=== PATIENT | female | born 2000 | race African-American/Black ===

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

== ENCOUNTER 2018-01-13 13:19 | Outpatient (CLI) | payer MEDICAID ==
--- NOTE | 2018-01-13 15:26 | ULT ---
COMPLETE OB ULTRASOUND GREATER THAN 14 WEEKS: History: Size and dates, anatomy scan. FINDINGS: Placenta is anterior. Single viable intrauterine fetus noted in cephalic presentation. Amniotic fluid index 17.6 cm. heart rate 184 beats/minute. Lower uterine segment is somewhat poorly seen. anatomy including visualized brain, four-chamber heart, three-vessel cord, stomach, bladd er, kidney, spine, and extremity regions are unremarkable. biometry: BDP 7 cm - 28 weeks 1 day HC 25.2 cm - 28 weeks 4 days AC 22.9 cm - 27 weeks 3 days FL 5.6 cm - 29 weeks 4 days IMPRESSION: 28 weeks 3 days, ADIS 12-17-18. Estimated weight 1194 grams. POS: [facility]
== END 2018-01-13 13:20 | disposition home or self-care (01) ==
LOC: BICULT 13:19
PROVIDERS: ATTEND Nurse Practitioner
DX: O09.893 Supervision of other high risk pregnancies, third trimester (principal); Z3A.28 28 weeks gestation of pregnancy
CPT/HCPCS: 76805

== ENCOUNTER 2018-03-10 16:58 | Day surgery (SDC) | payer MEDICAID, OTHER ==
[2018-03-10 17:37] VITALS: BP 110/70; TEMP 98.5; BMI 25.0
[2018-03-10 18:16] LABS: Amnisure Test No Membranes Rupture (No Rupture)
[2018-03-10 18:17] LABS: Amnisure Internal Control QC ACCEPTABLE (ACCEPTABLE)
[2018-03-10 18:28] LABS: Bilirubin Negative (Negative); Blood, Urine Negative (Negative); Clarity CLOUDY (Clear); Glucose, Urine (Dipstick) Negative (Negative); Leukocyte Moderate (Negative); Nitrite Negative (Negative); Protein, Urine (Dipstick) Negative (Neg-Trace); Specific Gravity, Urine 1.005 (1.002-1.036)
[2018-03-10 18:30] LABS: Bacteria/HPF None Seen HPF (None Seen); Hyaline Casts/LPF 0-3 HYALINE CAST LPF (0-3 Hyaline); Pathc Cast-AUWi Flag 0.14 (0-2.49); RBC/HPF 0-3 HPF (0-3); Squamous Epithelial 0-3 HPF (0-3)
--- NOTE | 2018-03-10 20:25 | SS ---
LABOR AND DELIVERY TRIAGE NOTE DATE OF EVALUATION: 03/10/2018 CHIEF COMPLAINT: Leakage of fluid at home, contractions, burning with urination. HISTORY OF PRESENT ILLNESS: Ms. Cabello is a 17-year-old black, G2, P1-0-0-1 with an estimated date of confinement of 04/04/2018, who presents this afternoon complaining of burning with urination, vaginal discharge and irregular contractions over the last 12-24 hours. She denies vaginal bleeding. Her care has been with Dr. Miller. PAST OBSTETRICAL HISTORY: One uncomplicated vaginal delivery at term. PAST MEDICAL HISTORY: None. CURRENT MEDICATIONS: vitamins. PAST SURGICAL HISTORY: Left breast cyst. ALLERGIES: No known allergies. SOCIAL HISTORY: Denies tobacco, alcohol, or drug use. REVIEW OF SYSTEMS: Denies nausea, vomiting, fever, chills, vaginal bleeding or decreased movement. PHYSICAL EXAMINATION: VITAL SIGNS: Her vital signs are stable. She is afebrile. ABDOMEN: Soft, nontender and gravid. PELVIC: Pelvic examination, on sterile speculum exam, shows no fluid in the vault. There is a small amount of discharge. On digital cervical examination, the cervix is 2 cm dilated, but the cervix is thick and posterior. heart tones are stable. There are no decelerations. They are reassuring. No significant regular contractions are seen. LABORATORY DATA: Her laboratories returned showing a urinalysis with a specific gravity of 1.005, pH of 7.0. It is cloudy with negative protein, negative glucose, negative ketones, negative blood, negative nitrites, but moderate leukocyte esterase. Her AmniSure shows no evidence of membrane rupture and her METAL [employer]TER-3 screen is negative for Hortensia, Gardnerella and Trichomonas. ASSESSMENT: 1. A 36-week intrauterine . 2. No evidence of ruptured membranes or labor. 3. Suspected urinary tract infection. PLAN: The patient will be discharged home now with labor precautions. She was given a prescription for Keflex 500 mg 1 p.o. q.i.d. for 7 days. She was given precautions regarding this. She voiced understanding of her discharge instructions and was sent home in good condition. She reports that she has an appointment with Dr. Miller next Wednesday. [facility]
== END 2018-03-10 19:15 ==
LOC: L&D/OP 16:58
PROVIDERS: ATTEND Internal Medicine
DX: O99.89 Other specified diseases and conditions complicating pregnancy, childbirth and the puerperium (principal); N89.8 Other specified noninflammatory disorders of vagina; R30.0 Dysuria; O47.03 False labor before 37 completed weeks of gestation, third trimester; Z79.899 Other long term (current) drug therapy; Z3A.36 36 weeks gestation of pregnancy
CPT/HCPCS: 81003; 81015; 84112; 87480; 87510; 87660; 99284

== ENCOUNTER 2018-03-15 03:09 | Inpatient (IN) | payer OTHER ==
[2018-03-15 04:03] VITALS: BMI 25.4
[2018-03-15] MEDS ORDERED: Lactated Ringer's 1,000 ML IV SCH ×2 (04:31)
[2018-03-15] MEDS ORDERED: Ibuprofen 800 MG TAB PO PRN (04:31)
[2018-03-15] MEDS ORDERED: Penicillin G Potassium 5 MILL.UNITS in Sodium Chloride 0.9% 100 ML IVPB SCH (04:31)
[2018-03-15] MEDS ORDERED: HYDROcodone/Acetaminophen 5/325 mg Tablet PO PRN ×2 (04:31)
[2018-03-15] MEDS ORDERED: Ondansetron PF 4 MG/2 ML Vial IVP PRN ×2 (04:31→13:50)
[2018-03-15] MEDS ORDERED: NS / Oxytocin 40 units/1000ml 1,000 ML IV PRN (04:31)
[2018-03-15] MEDS ORDERED: Promethazine HCl 25 MG/ML VIAL IM PRN (04:31)
[2018-03-15] MEDS ORDERED: Lidocaine 1% (PF) 30 ML VIAL SC PRN (04:31)
[2018-03-15 05:16] LABS: Hemoglobin 10.9 g/dL (12.0-16.0); Mean Corpuscular HGB CONC 33.7 g/dL (32.0-36.0); Mean Corpuscular Hemoglobin 28.5 pg (25.0-35.0); Mean Corpuscular Volume 84.6 fL (78.0-98.0); Mean Platelet Volume 9.4 fL (7.4-10.4); Platelet Count 230 thou/uL (130-400); RBC Distribution Width 12.1 % (11.5-14.5); Red Blood Cell (RBC) Count 3.83 mill/uL (4.00-5.20); White Blood Cell (WBC) Count 11.9 thou/uL (4.8-10.8)
[2018-03-15 05:58] LABS: HBSAg Index 0.24 S/CO (0-0.99); Hep B Surf Ag Non-Reactive S/CO (NonReactive); Syphilis Antibody Nonreactive (Nonreactive); Syphilis Antibody Index 0.06 S/CO (<1.00 Non-Reactive)
[2018-03-15] MEDS: Butorphanol Tartrate 1 MG/ML VIAL SLOW IVP PRN ×3 (07:27→10:52)
[2018-03-15] MEDS: Penicillin G 2.5 MILL.units 2.5 MILL.UNITS in Premix Bag 1 BAG IVPB SCH ×3 (08:45→16:30)
[2018-03-15] MEDS ORDERED: Benzocaine/Menthol 20-0.5% 60 ML CAN TOP PRN (13:50)
[2018-03-15] MEDS ORDERED: Milk Of Magnesia 30 ML UDCUP PO PRN (13:50)
[2018-03-15] MEDS ORDERED: NS / Oxytocin 40 units/1000ml 1,000 ML IV SCH (13:50)
[2018-03-15] MEDS ORDERED: Bisacodyl 10 MG SUPP PR PRN (13:50)
[2018-03-15] MEDS: Ibuprofen 800 MG TAB PO SCH ×2 (14:11→21:23)
[2018-03-15] MEDS: Ferrous Sulfate 325 MG TAB PO SCH (16:29)
[2018-03-15] MEDS: HYDROcodone/Acetaminophen 5/325 mg Tablet PO PRN (17:37)
[2018-03-15] MEDS: Docusate Calcium (SURFAK) 240 MG CAP PO SCH (21:23)
[2018-03-16] MEDS: HYDROcodone/Acetaminophen 5/325 mg Tablet PO PRN (05:10)
[2018-03-16] MEDS: Ibuprofen 800 MG TAB PO SCH ×3 (06:11→21:54)
[2018-03-16 06:46] LABS: Hemoglobin 10.8 g/dL (12.0-16.0); Mean Corpuscular HGB CONC 33.6 g/dL (32.0-36.0); Mean Corpuscular Volume 86.5 fL (78.0-98.0); Mean Platelet Volume 9.5 fL (7.4-10.4); Platelet Count 211 thou/uL (130-400); RBC Distribution Width 12.4 % (11.5-14.5); Red Blood Cell (RBC) Count 3.71 mill/uL (4.00-5.20); White Blood Cell (WBC) Count 11.1 thou/uL (4.8-10.8)
[2018-03-16] MEDS: Ferrous Sulfate 325 MG TAB PO SCH ×2 (07:29→16:08)
[2018-03-16] MEDS: Prenatal Vitamin 1 TAB PO SCH (09:30)
[2018-03-16] MEDS: Docusate Calcium (SURFAK) 240 MG CAP PO SCH ×2 (09:30→21:54)
[2018-03-17] MEDS: HYDROcodone/Acetaminophen 5/325 mg Tablet PO PRN ×3 (04:19→15:29)
[2018-03-17] MEDS: Ibuprofen 800 MG TAB PO SCH ×2 (04:19→13:51)
[2018-03-17] MEDS: Ferrous Sulfate 325 MG TAB PO SCH ×2 (07:53→15:16)
[2018-03-17 08:12] VITALS: BP 121/63; TEMP 98.1
[2018-03-17] MEDS: Docusate Calcium (SURFAK) 240 MG CAP PO SCH (09:19)
[2018-03-17] MEDS: Prenatal Vitamin 1 TAB PO SCH (09:19)
== END 2018-03-17 17:50 | disposition home or self-care (01) | DRG 807 ==
LOC: L&D/OP 03:09 → L&D 04:16 → 3SW 15:17
PROVIDERS: ADMIT Family Medicine; ATTEND Family Medicine
PROC: 10E0XZZ Delivery of Products of Conception, External Approach (ICD-10-PCS; principal; 2018-03-15)
PROC: 10907ZC Drainage of Amniotic Fluid, Therapeutic from Products of Conception, Via Natural or Artificial Opening (ICD-10-PCS; 2018-03-15)
DX: O98.82 Other maternal infectious and parasitic diseases complicating childbirth (principal); Z37.0 Single live birth; B95.1 Streptococcus, group B, as the cause of diseases classified elsewhere; Z3A.40 40 weeks gestation of pregnancy
CPT/HCPCS: 36415; 85027; 86780; 86850; 86900; 86901; 87340; 88307; 99285; J0595; J2001; J2540; J7050